=== PATIENT | male | born 1970 | race Caucasian/White ===

== ENCOUNTER 2020-02-21 10:54 | Emergency (ER) | payer MEDICAID ==
[~2020-02-21] VITALS: Ht 172.7 cm; Wt 118.2 kg
== END 2020-02-21 11:18 | disposition home or self-care (01) ==
LOC: ER 10:54
DX: R05 Cough (principal); Z20.828 Contact with and (suspected) exposure to other viral communicable diseases; R52 Pain, unspecified; Z88.0 Allergy status to penicillin
CPT/HCPCS: 36415; 87635; 99283